=== PATIENT | male | born 1965 | race Hispanic/Latino ===

== ENCOUNTER 2018-10-13 07:18 | Emergency (ER) | payer SELFPAY ==
[2018-10-13] MEDS ORDERED: Ondansetron PF 4 MG/2 ML Vial ONE (07:28)
[2018-10-13] MEDS ORDERED: Morphine 4 MG/ML VIAL ONE (07:28)
[2018-10-13 07:53] LABS: #Lymphocytes 1.2 thou/uL (1.20-3.40); #Monocytes 0.5 thou/uL (0.11-0.59); #Neutrophils 7.4 thou/uL (1.40-6.50); %Basophils 0.1 % (0.0-1.0); %Eosinophils 0.4 % (0.0-10.0); %Lymphocytes 12.9 % (21.0-51.0); %Monocytes 5.4 % (0.0-10.0); %Neutrophils 81.2 % (42.0-75.0); Mean Corpuscular HGB CONC 33.7 g/dL (32.0-36.0); Mean Corpuscular Hemoglobin 30.8 pg (27.0-31.0); Mean Corpuscular Volume 91.4 fL (78.0-98.0); Mean Platelet Volume 7.3 fL (7.4-10.4); Platelet Count 182 thou/uL (130-400); RBC Distribution Width 11.9 % (11.5-14.5); Red Blood Cell (RBC) Count 4.85 mill/uL (4.70-6.10); White Blood Cell (WBC) Count 9.2 thou/uL (4.8-10.8)
[2018-10-13 08:13] LABS: ALT (SGPT) 52 U/L (8-55); AST (SGOT) 28 U/L (5-34); Albumin 4.2 g/dL (3.5-5.0); Alkaline Phosphatase 84 U/L (40-150); Anion Gap 13 mmol/L (10-20); BUN (Urea Nitrogen) 12 mg/dL (8.4-25.7); Bilirubin, Total 0.4 mg/dL (0.2-1.2); Calc. Creatinine Clearance 0 mL/min (70-130); Calcium 9.2 mg/dL (7.8-10.44); Carbon Dioxide 21 mmol/L (22-29); Chloride 108 mmol/L (98-107); Estimated GFR-MDRD Greater than 90; Glucose 158 mg/dL (70-105); Lipase 25 U/L (8-78); Potassium 4.3 mmol/L (3.5-5.1); Protein, Total 7.2 g/dL (6.0-8.3); Sodium 138 mmol/L (136-145)
--- NOTE | 2018-10-13 08:41 | CT ---
CT ABDOMEN AND PELVIS WITH IV CONTRAST: HISTORY: Right-side abdominal pain and nausea. FINDINGS: There are mild dependent changes in the lung bases. The patient is post cholecystectomy. There is f atty infiltration of the liver without focal mass or intrahepatic ductal dilatation. The spleen, grullon creas, adrenal glands, and left kidney are normal. There is a 5 mm nonobstructing calculus in the ri ght kidney. No calculi are seen in the ureters or the urinary bladder. No hydroureteral nephrosis i s noted on either side. No free air, free fluid, or lymphadenopathy is seen in the abdomen or pelvis. A normal-appearing fiona endix is present. There is mild sigmoid diverticulosis. A small fat-containing left inguinal hernia is present. There is no evidence of aneurysmal dilatation of the abdominal aorta. There are mild d egenerative changes in the spine. There is mild prostatic enlargement. IMPRESSION: 1. Fatty liver. 2. Nonobstructing 5 mm right renal calculus. 3. Mild sigmoid diverticulosis. 4. Mild prostatic enlargement. 5. No evidence of acute process. POS: UJAN
[2018-10-13] MEDS ORDERED: Lidocaine Viscous Sol 2% 15 ml UD Cup ONE (08:57)
[2018-10-13] MEDS ORDERED: Mag-Al 1200 mg/1200 mg/30 ML UDCUP ONE (08:57)
[2018-10-13 09:26] LABS: Bilirubin Negative (Negative); Blood, Urine Negative (Negative); Clarity CLEAR (Clear); Glucose, Urine (Dipstick) Negative (Negative); Leukocyte Negative (Negative); Nitrite Negative (Negative); Protein, Urine (Dipstick) Negative (Neg-Trace); Urobilinogen 0.2 mg/dL (0.2-1.0)
[2018-10-13 09:30] LABS: Specific Gravity, Urine Greater than 1.060 (1.002-1.036)
[2018-10-13] MEDS ORDERED: ISOVUE-370 76%-LOCM 1 ML ONE (16:09)
== END 2018-10-13 09:55 | disposition home or self-care (01) ==
LOC: ERS 07:18
DX: R10.11 Right upper quadrant pain (principal)
CPT/HCPCS: 74177; 80053; 81003; 83690; 85025; 96374; 96375; J2270; J2405; Q9966

== ENCOUNTER 2019-05-12 04:34 | Emergency (ER) | payer SELFPAY ==
[2019-05-12] MEDS ORDERED: Ketorolac Tromethamine 30 MG/ML VIAL ONE (04:55)
[2019-05-12 05:02] LABS: #Lymphocytes 1.2 thou/uL (1.20-3.40); #Monocytes 0.5 thou/uL (0.11-0.59); #Neutrophils 9.7 thou/uL (1.40-6.50); %Basophils 0.3 % (0.0-1.0); %Eosinophils 0.4 % (0.0-10.0); %Lymphocytes 10.2 % (21.0-51.0); %Monocytes 4.5 % (0.0-10.0); %Neutrophils 84.6 % (42.0-75.0); Mean Corpuscular HGB CONC 34.3 g/dL (32.0-36.0); Mean Corpuscular Volume 90.3 fL (78.0-98.0); Mean Platelet Volume 6.4 fL (7.4-10.4); Platelet Count 220 thou/uL (130-400); RBC Distribution Width 11.8 % (11.5-14.5); Red Blood Cell (RBC) Count 4.84 mill/uL (4.70-6.10); White Blood Cell (WBC) Count 11.4 thou/uL (4.8-10.8)
[2019-05-12 05:30] LABS: ALT (SGPT) 42 U/L (8-55); AST (SGOT) 20 U/L (5-34); Albumin 4.1 g/dL (3.5-5.0); Alkaline Phosphatase 81 U/L (40-110); Anion Gap 10 mmol/L (10-20); BUN (Urea Nitrogen) 13 mg/dL (8.4-25.7); Bilirubin, Total 0.5 mg/dL (0.2-1.2); Calc. Creatinine Clearance 0 mL/min (70-130); Calcium 9.1 mg/dL (7.8-10.44); Carbon Dioxide 27 mmol/L (22-29); Chloride 104 mmol/L (98-107); Estimated GFR-MDRD Greater than 90; Glucose 162 mg/dL (70-105); Lipase 21 U/L (8-78); Potassium 3.7 mmol/L (3.5-5.1); Protein, Total 7.1 g/dL (6.0-8.3); Sodium 137 mmol/L (136-145)
--- NOTE | 2019-05-12 08:44 | CT ---
PRELIMINARY REPORT/[facility]/EMERGENCY AFTER HOURS PROCEDURE: PROCEDURE: CT Scan Abdomen and Pelvis with IV Contrast Material. HISTORY: RIGHT upper quadrant pain. TECHNIQUE: Axial images were performed with multiplanar reconstructions. The patient was given iodin ated contrast intravenously. The patient was not given oral contrast material. COMPARISONS: None . FINDINGS: Clear lung bases. Mild diffuse hepatic steatosis. Spleen, adrenals, and pancreas show no abnormality. Kidneys show no rmal enhancement with no masses or obstructive uropathy. There has been previous cholecystectomy with normal sized biliary tree. No abdominal ascites or pneumoperitoneum. Normal aorta. No lymphadenopathy. No bowel dilatation or inflammation. Radiodense pill in the terminal ileum. Appendix is not visuali zed. 2 cm omental umbilical hernia. Pelvis shows no masses or free fluid. Normal urinary bladder. No acute bony abnormality. IMPRESSION: Mild diffuse hepatic steatosis. Previous cholecystectomy. No other significant abnormality identified. ELECTRONICALLY SIGNED BY: Mikie Petit MD May 12, 2019 6:17:41 AM [employer] This report is intended for review by the ordering physician only, in accordance of law. If you recei ve this report in error, please call [facility] at [phone]. FINAL REPORT ABDOMEN CT WITH CONTRAST PELVIC CT WITH CONTRAST: Date: 05/12/19 COMPARISON: 10/13/18. HISTORY: Right upper quadrant pain. FINDINGS: There is appropriate enhancement of the solid organs. Surgically absent gallbladder. Nonobstructing 5 mm calculus in the lower pole of the right kidney. Limited evaluation of the alimentary canal by the lack of oral contrast. No evidence of bowel obstruction. Unremarkable ileocecal junction. Normal diane iber appendix. Mildly prominent prostate gland. Bilateral pars defects with Grade I anterolisthesis o f L5 upon S1. Incidental left inguinal hernia containing fat. IMPRESSION: This report is in agreement with the initial report by [facility]. No acute abnormality in the abdomen or pelvis. POS: OFF
== END 2019-05-12 06:24 | disposition home or self-care (01) ==
LOC: ERS 04:34
DX: R10.13 Epigastric pain (principal); R10.813 Right lower quadrant abdominal tenderness
CPT/HCPCS: 74177; 80053; 83690; 85025; 96374; J1885

== ENCOUNTER 2024-02-13 10:17 | Emergency (ER) | payer SELFPAY ==
[2024-02-13 10:51] LABS: #Basophils Less than 0.03 10x3/uL (0.0-0.2); #Eosinphils Less than 0.03 10x3/uL (0.0-0.7); %Basophils 0.2 % (0.0-1.0); %Eosinophils 0.1 % (0.0-10.0); %Lymphocytes 11.5 % (21.0-51.0); %Monocytes 3.7 % (0.0-10.0); Hematocrit 46.2 % (42.0-52.0); Hemoglobin 15.4 g/dL (14.0-18.0); Mean Corpuscular HGB CONC 33.3 g/dL (32.0-36.0); Mean Corpuscular Hemoglobin 30.8 pg (27.0-31.0); Mean Corpuscular Volume 92.4 fL (78.0-98.0); Platelet Count 219 10x3/uL (130-400); RBC Distribution Width 12.4 % (11.5-14.5)
[2024-02-13 11:09] LABS: ALT (SGPT) 49 U/L (8-55); AST (SGOT) 23 U/L (5-34); Albumin 4.1 g/dL (3.5-5.0); Alkaline Phosphatase 79 U/L (40-110); Anion Gap 9 mmol/L (10-20); BUN (Urea Nitrogen) 15 mg/dL (8.4-25.7); Bilirubin, Total 0.5 mg/dL (0.2-1.2); Calc. Creatinine Clearance 0 mL/min (70-130); Calcium 9.2 mg/dL (7.8-10.44); Carbon Dioxide 25 mmol/L (22-29); Chloride 108 mmol/L (98-107); Estimated GFR 102; Globulin 3.5 g/dL (2.4-3.5); Glucose 180 mg/dL (70-105); Lipase 24 U/L (8-78); Potassium 4.2 mmol/L (3.5-5.1); Protein, Total 7.6 g/dL (6.0-8.3); Sodium 138 mmol/L (136-145)
[2024-02-13] MEDS ORDERED: Ondansetron PF 4 MG/2 ML Vial ONE (12:19)
[2024-02-13] MEDS ORDERED: Ketorolac Tromethamine 30 MG (1 mL) VIAL ONE (12:19)
[2024-02-13] MEDS ORDERED: Lidocaine Viscous Sol 2% 15 ml UD Cup ONE (12:19)
[2024-02-13] MEDS ORDERED: Famotidine/PF 20 mg/2ml Vial ONE (12:19)
[2024-02-13] MEDS ORDERED: Mag-Al 1200 mg/1200 mg/30 ML UDCUP ONE (12:20)
[2024-02-13 13:10] LABS: Bacteria/HPF None Seen HPF (None Seen); Bilirubin Negative (Negative); Blood, Urine Negative (Negative); CAUTI Indications for Culture Dysuria,urgency,freq; Clarity Clear (Clear); Glucose, Urine (Dipstick) Normal (Negative); Ketone, Urine 10 mg/dL (Negative); Leukocyte Negative Leu/uL (Negative); Nitrite Negative (Negative); Protein, Urine (Dipstick) 10 mg/dL (Neg-Trace); RBC/HPF 0-3 HPF (0-3); Squamous Epithelial 0-3 HPF (0-3); Urobilinogen Normal mg/dL (Less than 2); WBC/HPF None Seen HPF (0-3)
[2024-02-13 13:15] LABS: Urine Culture Reflex No No
[2024-02-13 16:40] LABS: Specific Gravity, Urine Greater than 1.060 (1.002-1.036)
== END 2024-02-13 14:20 | disposition home or self-care (01) ==
LOC: ERS 10:17
DX: R10.11 Right upper quadrant pain (principal); R10.811 Right upper quadrant abdominal tenderness; E11.9 Type 2 diabetes mellitus without complications; N20.0 Calculus of kidney; Z79.84 Long term (current) use of oral hypoglycemic drugs
CPT/HCPCS: 36415; 74177; 76705; 80053; 81001; 83605; 83690; 85025; 96374; 96375; J1885; J2405; J3490